=== PATIENT | female | born 1995 | race Caucasian/White ===

== ENCOUNTER → 2017-08-29 14:02 | Outpatient (CLI) | payer OTHER, SELFPAY ==
--- NOTE | 2017-08-29 | DI.US.S_ITS ---
PROCEDURE: US OB >= 14 WEEKS FETUS INDICATIONS: 20 WEEK ANATOMICAL SURVEY OUTSIDE/PRIOR DATING DATA: Last menstrual period (LMP): 04/10/2017. LMP-based estimated date of delivery (MARTHA): 01/15/2018. First dating scan (date and location): 06/07/2017. Estimated date of delivery (MARTHA) from first dating scan: 01/12/2018. TECHNIQUE: Real-time scanning was performed of the fetus, with image documentation and biometric measurements. Endovaginal scanning: Not required COMPARISON: [facility], OB <= 14 WEEKS FETUS, 06/07/2017, 9:02. FINDINGS: General: A single living intrauterine gestation is present. Presentation: Vertex. Placenta: Placental position is posterior, without previa. Amniotic fluid index: 14.0 cm, normal range is 5-24 cm. heart rate: 162 beats per minute. Maternal cervical canal: 4.6 cm long. Normal lower limit is 2.5 cm. biometrics: Biparietal diameter: 20 weeks 3 days Head circumference: 20 weeks one day Abdominal circumference: 20 weeks 2 days Femur length: 20 weeks 3 days Estimated gestational age from initial scan: 20 weeks 4 days Composite gestational age from present scan: 20 weeks 2 days, normal growth Estimated weight and percentile: 347 g at the 32nd percentile Measurement variability for biometric dating: +/- 7 days from 14 weeks to 15 weeks 6 days gestation, +/- 10 days from 16 weeks to 21 weeks 6 days gestation, +/- 2 weeks from 22 weeks to 27 weeks 6 days gestation, +/- 3 weeks for 28 weeks gestation or later. weight reference: 4500 g or EFW >90/95% is considered macrosomia or large for gestational age. EFW <10% is small for gestational age. EFW 5% or less is considered intra-uterine growth restriction. Anatomic survey: Neuro: Ventricles are non-dilated at less than 10 mm. Cisterna magna is normal at 3-11 mm. Cerebellum is normal in size and morphology. Nuchal skin fold: Normal at less than 6 mm between 14-21 weeks gestational age. Face: Nose and lips, facial profile are normal. Spine: No evidence for spina bifida. Heart: 4-chambered heart is present, with normal ventricular outflow tracts. Diaphragm: Diaphragm is intact. Stomach: Left-sided stomach is present. Kidneys: No hydronephrosis. Normal is less than 5 mm in 2nd trimester, less than 7 mm in 3rd trimester. Cord: 3-vessel cord has orthotopic insertion. Bladder: Normal in size. Extremities: All 4 extremities identified. IMPRESSION: Single, live intrauterine gestation showing composite gestational age of 20 weeks 2 days, normal growth and normal anatomy. Dictated by: Coy Ash M.D. on 08/29/2017 at 15:53 Approved by: Coy Ash M.D. on 08/29/2017 at 15:56
== END ==
PROVIDERS: PCP Family Medicine; Visit Provider Family Medicine
DX: Z36.89 Encounter for other specified antenatal screening (principal); Z3A.20 20 weeks gestation of pregnancy
CPT/HCPCS: 76811

== ENCOUNTER 2017-11-21 04:15 | Outpatient (CLI) | payer OTHER, SELFPAY ==
[2017-11-21 04:43] LABS: RBC Urine None Seen (0-5/HPF); WBC Urine None Seen (0-5/HPF)
[2017-11-21 04:44] LABS: Appearance Urine UA CLEAR; Bilirubin Urine UA NEGATIVE (NEGATIVE); Color Urine UA YELLOW; Glucose Urine UA NEGATIVE (Normal); Ketones Urine UA NEGATIVE (NEGATIVE); Leukocyte Esterase Urine UA NEGATIVE (NEGATIVE); Nitrite Urine UA NEGATIVE (Negative); Occult Blood Urine UA NEGATIVE (Negative); Protein Urine UA NEGATIVE (Negative); Specific Gravity Urine UA 1.015 (1.000-1.035); Urobilinogen Urine UA 0.2 E.U./dL (0.2)
[2017-11-21 04:51] LABS: Bacteria Urine Few (2-10); Culture Indicated Urine Cult Not Indicated; Squamous Epithelial Cell Urine 1-5 /HPF
== END 2017-11-21 05:15 | disposition home or self-care (01) ==
LOC: OB 14:07
PROVIDERS: PCP Family Medicine; Visit Provider Family Medicine
DX: Z34.83 Encounter for supervision of other normal pregnancy, third trimester (principal); Z3A.32 32 weeks gestation of pregnancy; M54.5 Low back pain
CPT/HCPCS: 59025; 81001; G0378; G0379

== ENCOUNTER 2017-11-21 05:13 | Emergency (ER) | payer OTHER, SELFPAY ==
[2017-11-21 05:28] VITALS: BP 132/75; PULSE 74; RESP 16; TEMP 36.6; O2SAT 97; BMI 30.7
[2017-11-21 05:33] VITALS: BP 121/66
[2017-11-21 06:30] VITALS: BP 97/53; PULSE 62; O2SAT 100
--- NOTE | 2017-11-21 07:10 | ED_ITS ---
HPI - Back Pain/Injury General Chief Complaint: Back Pain/Injury Stated Complaint: Back pain for several days Time Seen by Provider: 11/21/17 07:09 Source: patient Mode of arrival: ambulatory Limitations: no limitations History of Present Illness HPI Narrative: 22-year-old at 32 weeks EGA with out vaginal bleeding, loss of vaginal fluid, urinary symptoms, change in bowel habits here for evaluation of right-sided mid back pain. Patient states that it started on while she was driving. No specific trauma. Been constant since then. Has tried Tylenol. Call her OB doctor who told her to come in for evaluation. Related Data Home Medications Medication Instructions Recorded Confirmed PNV,calcium 16-ywaf-icnbn acid 11/21/17 [ Plus (calcium carb)] Previous Rx's Medication Instructions Recorded hydrocodone-acetaminophen [[place]] 1 tab PO Q6H PRN #5 tab 11/21/17 Allergies Allergy/AdvReac Type Severity Reaction Status Date / Time albuterol Allergy Difficulty Verified 11/21/17 04:56 Breathing Review of Systems Constitutional Denies fever(s) Cardiovascular Denies chest pain and Denies dyspnea Respiratory Denies dyspnea Gastrointestinal Gastrointestinal: Denies abdominal pain and Denies change in stool character Genitourinary Denies dysuria, Denies pelvic pain, Denies urinary incontinence, Denies urinary hesitancy, Denies urinary urgency and Denies vaginal discharge Musculoskeletal Reports myalgias ( Right flank pain) and Denies arthralgias Integumentary/Breasts Denies lesions and Denies rash Neurologic Denies confusion Psychiatric Denies confusion Hematologic/Lymphatic Denies easy bleeding and Denies easy bruising [facility] Medical History Healthy adult (Acute) Surgical History No pertinent past surgical history (Acute) Exam Initial Vital Signs Initial Vital Signs: Vital Signs Temperature 97.8 F 11/21/17 05:28 Pulse Rate 74 11/21/17 05:28 Respiratory Rate 16 11/21/17 05:28 Blood Pressure 132/75 11/21/17 05:28 Pulse Oximetry 97 11/21/17 05:28 HENMT Head: normal to inspection and normocephalic Resp Effort & Inspection: normal respiratory effort Auscultation: clear to auscultation bilaterally Cardio Rate: regular rate GI Inspection: non-distended Palpation: soft and No firm Back/Spine/Pelvis Back: CVA tenderness right Skin Lesions: no lesions Rashes: no rashes Extrem General: normal to inspection and capillary refill normal Psych Appearance: grossly normal and well kempt Course Orders Ordered: ED Orders 11/21/17 07:39 Urine Culture Stat Discontinued Medications Hydrocodone Bitart/Acetaminophen ([place] 5/325) 1 tab PO NOW ONE Stop: 11/21/17 07:34 Vital Signs - 8 hr 11/21/17 05:28 11/21/17 05:33 Temperature 97.8 F Pulse Rate 74 Respiratory Rate 16 Blood Pressure 132/75 Blood Pressure [Right Arm] 121/66 Pulse Oximetry 97 MDM - Back Pain/Injury MDM Narrative Medical decision making narrative: patient went to labor and delivery just prior to coming to the emergency department. She stated that they told her that she was not in labor. She is not having any urinary symptoms. Patient is urinalysis from the birthing center was reviewed. Has bacteria but no other symptoms. A culture was added and is pending at the time of discharge. Will hold on any antibiotics until the culture returns. Discussed with patient the limited medication options she has given her status. Medications such as Flexeril /Robaxin / Valium are all indeterminate . I did discuss this with her. We also discussed other options to include heat, ice, massage another [id number] remedies. Will send home with a few pain pills. She was instructed she needed to contact her OB doctor to discuss further treatment. She was given return precautions. She expressed understanding and agreement with plan. Her physical exam is consistent with musculoskeletal etiology. Doubt labor, pyelonephritis, kidney stone. Discharge Plan Departure Patient Disposition: Home Clinical Impression: Muscle spasm Instructions: How To Perform RICE (Rest, Ice, Compress, Elevate), DI for Back Spasm Activity Restrictions/Additional Instructions: I would encourage you to do easy treatment such as ice, massage, staying active. Call your OB provider today to discuss further medication treatment. Return to the emergency department for any new symptoms, worsening symptoms, fevers, urinary symptoms. Prescriptions: New hydrocodone-acetaminophen [[place]] 5-325 mg tablet 1 tab PO Q6H PRN (Reason: pain) Qty: 5 RF: 0 No Action PNV,calcium 93-ldsw-nhoya acid [ Plus (calcium carb)] 27 mg iron- 1 mg tablet RF: 0
[2017-11-21 07:30] VITALS: BP 113/65; PULSE 70; O2SAT 100
[2017-11-21] MEDS: HYDROCODONE/ACET 5/325 TABLET 1 TAB PO (07:41)
[2017-11-21 07:50] VITALS: BP 124/77; PULSE 73; RESP 18; O2SAT 100
--- NOTE | 2017-11-21 08:56 | ED.BACK ---
HPI - Back Pain/Injury General Chief Complaint: Back Pain/Injury Stated Complaint: Back pain for several days Time Seen by Provider: 11/21/17 07:09 Source: patient Limitations: no limitations Related Data Home Medications Medication Instructions Recorded Confirmed PNV,calcium 02-xziw-mupmn acid 11/21/17 [ Plus (calcium carb)] Previous Rx's Medication Instructions Recorded hydrocodone-acetaminophen [[place]] 1 tab PO Q6H PRN #5 tab 11/21/17 Allergies Allergy/AdvReac Type Severity Reaction Status Date / Time albuterol Allergy Difficulty Verified 11/21/17 04:56 Breathing Review of Systems Neurologic Denies confusion Psychiatric Denies confusion PFSH Medical History Healthy adult (Acute) Surgical History No pertinent past surgical history (Acute) Exam Initial Vital Signs Initial Vital Signs: Vital Signs Temperature 97.8 F 11/21/17 05:28 Pulse Rate 74 11/21/17 05:28 Respiratory Rate 16 11/21/17 05:28 Blood Pressure 132/75 11/21/17 05:28 Pulse Oximetry 97 11/21/17 05:28 Course Orders Ordered: Discontinued Medications Hydrocodone Bitart/Acetaminophen ([place] 5/325) 1 tab PO NOW ONE Stop: 11/21/17 07:34 Last Admin: 11/21/17 07:41 Dose: 1 tab Vital Signs - 8 hr 11/21/17 05:28 11/21/17 05:33 11/21/17 06:30 Temperature 97.8 F Pulse Rate 74 62 Respiratory Rate 16 Blood Pressure 132/75 Blood Pressure [Right Arm] 121/66 97/53 L Pulse Oximetry 97 100 11/21/17 07:30 Temperature Pulse Rate 70 Respiratory Rate Blood Pressure Blood Pressure [Right Arm] 113/65 Pulse Oximetry 100 Discharge Plan Departure Patient Disposition: Home Clinical Impression: Muscle spasm Discharge Date/Time: 11/21/17 07:55 Interventions: ED Discharge Assessment Last Done: 11/21/17 07:50 Instructions: How To Perform RICE (Rest, Ice, Compress, Elevate), DI for Back Spasm Activity Restrictions/Additional Instructions: I would encourage you to do easy treatment such as ice, massage, staying active. Call your OB provider today to discuss further medication treatment. Return to the emergency department for any new symptoms, worsening symptoms, fevers, urinary symptoms. Prescriptions: New hydrocodone-acetaminophen [[place]] 5-325 mg tablet 1 tab PO Q6H PRN (Reason: pain) Qty: 5 RF: 0 No Action PNV,calcium 96-toqf-vnmqd acid [ Plus (calcium carb)] 27 mg iron- 1 mg tablet RF: 0
--- NOTE | 2017-11-21 19:43 | ED_ITS ---
HPI - Back Pain/Injury General Chief Complaint: Back Pain/Injury Stated Complaint: Back pain for several days Time Seen by Provider: 11/21/17 07:09 Source: patient Limitations: no limitations Related Data Home Medications Medication Instructions Recorded Confirmed PNV,calcium 86-jsvq-xzgnr acid 11/21/17 [ Plus (calcium carb)] Previous Rx's Medication Instructions Recorded hydrocodone-acetaminophen [[place]] 1 tab PO Q6H PRN #5 tab 11/21/17 Allergies Allergy/AdvReac Type Severity Reaction Status Date / Time albuterol Allergy Difficulty Verified 11/21/17 04:56 Breathing Review of Systems Neurologic Denies confusion Psychiatric Denies confusion PFSH Medical History Healthy adult (Acute) Surgical History No pertinent past surgical history (Acute) Exam Initial Vital Signs Initial Vital Signs: Vital Signs Temperature 97.8 F 11/21/17 05:28 Pulse Rate 74 11/21/17 05:28 Respiratory Rate 16 11/21/17 05:28 Blood Pressure 132/75 11/21/17 05:28 Pulse Oximetry 97 11/21/17 05:28 Course Orders Ordered: Discontinued Medications Hydrocodone Bitart/Acetaminophen ([place] 5/325) 1 tab PO NOW ONE Stop: 11/21/17 07:34 Last Admin: 11/21/17 07:41 Dose: 1 tab Vital Signs - 8 hr 11/21/17 05:28 11/21/17 05:33 11/21/17 06:30 Temperature 97.8 F Pulse Rate 74 62 Respiratory Rate 16 Blood Pressure 132/75 Blood Pressure [Right Arm] 121/66 97/53 L Pulse Oximetry 97 100 11/21/17 07:30 Temperature Pulse Rate 70 Respiratory Rate Blood Pressure Blood Pressure [Right Arm] 113/65 Pulse Oximetry 100 Discharge Plan Departure Patient Disposition: Home Clinical Impression: Muscle spasm Discharge Date/Time: 11/21/17 07:55 Interventions: ED Discharge Assessment Last Done: 11/21/17 07:50 Instructions: How To Perform RICE (Rest, Ice, Compress, Elevate), DI for Back Spasm Activity Restrictions/Additional Instructions: I would encourage you to do easy treatment such as ice, massage, staying active. Call your OB provider today to discuss further medication treatment. Return to the emergency department for any new symptoms, worsening symptoms, fevers, urinary symptoms. Prescriptions: New hydrocodone-acetaminophen [[place]] 5-325 mg tablet 1 tab PO Q6H PRN (Reason: pain) Qty: 5 RF: 0 No Action PNV,calcium 78-gohc-dtiay acid [ Plus (calcium carb)] 27 mg iron- 1 mg tablet RF: 0
== END 2017-11-21 07:55 | disposition home or self-care (01) ==
PROVIDERS: Emergency Provider Emergency Medicine; PCP Family Medicine
DX: M62.830 Muscle spasm of back (principal); Z3A.32 32 weeks gestation of pregnancy
CPT/HCPCS: 59025; 81001; 87086; 99283

== ENCOUNTER → 2017-12-20 17:16 | Outpatient (REF) | payer OTHER, SELFPAY | LOC: LAB 17:16 | PROVIDERS: PCP Family Medicine; Visit Provider Family Medicine | DX: Z34.90 Encounter for supervision of normal pregnancy, unspecified, unspecified trimester (principal) | CPT/HCPCS: 87081 ==

== ENCOUNTER → 2018-01-09 09:43 | Outpatient (CLI) | payer OTHER, SELFPAY ==
--- NOTE | 2018-01-09 | DI.US.S_ITS ---
PROCEDURE: US OB LIMITED INDICATIONS: SIZE LESS THAN DATES OUTSIDE/PRIOR DATING DATA: Last menstrual period (LMP): 04/10/2017. LMP-based estimated date of delivery (MARTHA): 01/15/2018. First dating scan (date and location): 06/07/2017. Estimated date of delivery (MARTHA) from first dating scan: 01/12/2018. TECHNIQUE: Real-time scanning was performed of the fetus, with image documentation and biometric measurements. Endovaginal scanning: No [facility] >= 14 WEEKS FETUS, 08/29/2017, 14:34. FINDINGS: General: A single living intrauterine gestation is present. Presentation: Vertex. Placenta: Placental position is posterior, without previa. Amniotic fluid index: 8.4 cm, normal range is 5-24 cm. heart rate: 149 beats per minute. Maternal cervical canal: Not well-seen biometrics: Biparietal diameter: 38 weeks 2 days Head circumference: 39 weeks 1 day Abdominal circumference: 39 weeks 1 day Femur length: 39 weeks 3 days Estimated gestational age from initial scan: 39 weeks 4 days Composite gestational age from present scan: 39 weeks 0 days Estimated weight and percentile: 3693 g; 63rd percentile Measurement variability for biometric dating: +/- 7 days from 14 weeks to 15 weeks 6 days gestation, +/- 10 days from 16 weeks to 21 weeks 6 days gestation, +/- 2 weeks from 22 weeks to 27 weeks 6 days gestation, +/- 3 weeks for 28 weeks gestation or later. weight reference: 4500 g or EFW >90/95% is considered macrosomia or large for gestational age. EFW <10% is small for gestational age. EFW 5% or less is considered intra-uterine growth restriction. Other: Not applicable. IMPRESSION: 1. Single living IUP redemonstrated and interval growth is normal. Dictated by: Navarro Hinson RRA Interpreted: Lyric Jones MD on 01/09/2018 at 12:00 Approved by: Lyric Jones MD, PhD on 01/09/2018 at 16:22
== END ==
PROVIDERS: PCP Family Medicine; Visit Provider Family Medicine
DX: O36.5930 Maternal care for other known or suspected poor fetal growth, third trimester, not applicable or unspecified (principal); Z3A.39 39 weeks gestation of pregnancy
CPT/HCPCS: 76815

== ENCOUNTER 2018-01-11 06:04 | Inpatient (IN) | payer OTHER, SELFPAY ==
[2018-01-11 08:09] VITALS: BP 122/77
[2018-01-11 08:15] LABS: Add Manual Diff / Slide Review NO; Basophils Percent Auto 0.3 % (0-2); Eosinophils Percent Auto 0.3 % (2-4); Hematocrit 40.8 % (36-46); Hemoglobin 13.2 g/dL (12.0-16.0); Lymphocytes Percent Auto 12.1 % (25-40); Mean Corpuscular HGB Conc 32.5 % (30-36); Mean Corpuscular Hemoglobin 28.4 PG (26-34); Mean Corpuscular Volume 87.6 fL (80-100); Monocytes Percent Auto 5.7 % (3-14); Neutrophils Absolute Auto 11700 /uL (3000-5900); Neutrophils Percent Auto 81.6 % (50-75); Platelet Count 279 X10^3/uL (150-400); Red Blood Cell Count 4.65 X10^6/uL (4.0-5.2); White Blood Cell Count 14.3 X10^3/uL (4.5-11.0)
[2018-01-11] MEDS: LACTATED RINGERS 1,000 ML 100 ML IV ×2 (10:26→11:23)
--- NOTE | 2018-01-11 13:06 | PM.OBPN.1 ---
Subjective - OB Patient comments: no complaints and pain well controlled Exam Vital Signs (past 8 hours): - 01/11/18 08:09 Blood Pressure 122/77 Objective Labs Result Diagrams: 01/11/18 08:01 Labs: Laboratory Results - last 24 hr 01/11/18 01/11/18 08:01 08:01 WBC 14.3 H RBC 4.65 Hgb 13.2 Hct 40.8 MCV 87.6 MCH 28.4 MCHC 32.5 RDW 14.0 Plt Count 279 Neut % (Auto) 81.6 H Lymph % (Auto) 12.1 L [place] % (Auto) 5.7 Eos % (Auto) 0.3 L Baso % (Auto) 0.3 Neut # (Auto) 29351 H Blood Type B Positive Antibody Screen Negative Assessment & Plan Time Spent With Patient Total time spent is greater than 50% in coordination of care (as documented) at patient's floor/unit and/or counseling patient:
--- NOTE | 2018-01-11 13:08 | PM.OBPNLAB ---
Date/Time Date Patient Seen: 01/11/18 Time Patient Seen: 13:08 Pain Control Pain control: tolerating well and epidural Pelvic Exam Dilation (cm): 5 Effacement (%): 100 station: -1 Amniotic membrane status: Ruptured Comments: ruptured at 1215pm today suspected Contractions Date/Time contractions began: 01/11/18 at 130am Contractions on admission: regular Monitor mode: External Contraction frequency (min): 4 Contraction pattern: Regular Contraction intensity: Strong/Firm Status status: Category l Heart Rate Baseline: 120 Monitor Accelerations: Present Monitor Decelerations: Early Monitor Variability: Moderate Assessment and Plan Assessment: active labor Plan: continuous present management Comments: gbs negative rh positive comfortable with epidural pitocin if ctx space out
[2018-01-11] MEDS: OXYTOCIN PREMIX 30 UNIT/500 ML PLAST..BAG IV (13:16)
[2018-01-11] MEDS: IBUPROFEN 600 MG TABLET PO (17:14)
[2018-01-11] MEDS: LANOLIN OINT 7 GM 1 APPLIC TOP (17:14)
[2018-01-11] MEDS: DERMOPLAST SPRAY 20% 60 ML 1 SPRAY TOP (17:16)
--- NOTE | 2018-01-11 18:02 | P.PCNOB_ITS ---
Delivery date: 01/11/18 Intrapartal events: None Induction method: none Delivery monitor: external FHT Route of delivery: Laceration description: Vaginal - 2nd Degree Delivery repair: chromic Estimated blood loss (mL): 200 Anesthesia type: Epidural Complications: none Narrative: Stage I: 12 hr and 25 min Patient started having painful contractions at 1:45 a.m. and was felt she was in active labor. She had painful contractions and presented to Labor and delivery and was admitted at 7:00 a.m.. She was monitored for about a 0.5 hr was 3 cm 90% effaced 0 station on presentation. Intact bag of water. She is admitted to the hospital continued to labor and was making progress. Was 4 cm 90% effaced and 0 station and then was referred requesting help with anesthesia. She was given epidural at 10:40 a.m. which was very effective epidural. She was comfortable throughout the remainder of the labor. External tocometer was used throughout this stage in which her contractions spaced out to every 3-4 minutes 0 3 milliunits of Pitocin was started after the epidural at approximately 13 15. She then had regular contractions every 2-4 minutes. Category 1 tracing with external heart monitor throughout stage I. Baseline heart rate in 120s with accelerations with moderate variability and occasional variable deceleration. She had slight leakage of fluid at 12:15 a.m. which was 2 hr and 52 min prior to delivery. It was clear fluid. She was noted to be complete at 2:10 p.m.. And labor down until 1426 when she began pushing. Stage II lasted 57 min but she had 41 min of pushing. Patient was placed in stirrups due to epidural and continued to have excellent anesthesia. We continue to use external tocometer and heart monitor and she continued to have a category 1 tracing with a baseline heart rate in the 120s to 130s with moderate variability and accelerations with no decelerations to the 1 teens with pushing. Pitocin was continued at 3 milliunits. Patient allowed the baby to sit on the perineum effectively stretching. Baby was delivered in right Calderon put anterior position. She stop pushing briefly there is no evidence of a nuchal cord and anterior shoulder and posterior shoulder shoulder were delivered without difficulty and baby was placed on mom's chest. Baby's Apgars were 8 at 1 min and 9 at 5 min and shortly after baby began breast-feeding. Stage III lasted 5 min Normal spontaneous vaginal delivery of a very large placenta without significant calcifications with a near central cord insertion with a three- vessel cord. Patient had a 2nd degree left lateral vaginal laceration and a left labial laceration both of which were repaired using 17471 chromic. Cervix was visualized there were no cervical tears no other vaginal tears and bleeding had decreased with good uterine tone. Pitocin was run in at the time of the delivery of the placenta. At the time of dictation both mom and baby are in stable condition. Plan for aftercare: routine
--- NOTE | 2018-01-11 18:10 | PM.HP.1 ---
History of Present Illness Date Patient Seen: 01/11/18 Time Patient Seen: 09:10 Chief complaint: LABOR & DELIVERY Narrative: HPI: 22-year-old female who complains of onset of uterine contractions approximately 1:30 a.m.. She was unable to go to sleep. The intensity gradually increase through the night she presented to Labor and delivery on the day of delivery at approximately 6:30 a.m.. She was found to be 3 cm, 90% effaced and 0 station. Category 1 tracing. She was admitted to the hospital. She denied any leaking fluid or any bloody show. She did lose some of her mucus plug. She denies any abdominal pain or swelling or headaches. Baby has been active. Past OB history: This is her 1st care was begun early on at approximately 10 weeks gestation. She had approximately 12 visits. Her blood pressures were good 96-120 2/60 2-70. She gained 35 lb. Serology B positive, antibody screen negative, rubella immune, syphilis, hepatitis-B, hepatitis-C, HIV all negative. No anemia. Chlamydia and gonorrhea negative. Pap normal. Quad screen negative. 1 hr glucose tolerance test 106. Received Tdap and flu shot Past surgical history unremarkable Past medical history unremarkable Family history: Half sister had emergency due to utero placental insufficiency No congenital defects Patient History Medical History Healthy adult (Acute) Surgical History No pertinent past surgical history (Acute) Family & Social History Tobacco & Substance use: Smoking Status Never smoker Meds Home Medications Medication Instructions Recorded Confirmed Type PNV,calcium 85-dytg-seofb acid 1 tab PO DAILY 11/21/17 01/11/18 History [PrePlus] Allergies Allergy/AdvReac Type Severity Reaction Status Date / Time albuterol Allergy Difficulty Verified 11/21/17 04:56 Breathing Review of Systems Review of Systems All systems reviewed & are unremarkable except as noted in HPI and below Exam Vital Signs (past 8 hours): Afebrile vital signs are stable HEENT is unremarkable Neck is supple Chest clear to auscultation Cor regular rate and rhythm without murmur Abdomen: Gravid, vertex, estimated weight 7 lb Extremities no edema, DTRs are intact Cervix 5 to 6 cm, 100% effaced heart tracing baseline 120s with accelerations and moderate variability and no decelerations. Uterine contractions regular every 2-4 minutes Objective Labs Result Diagrams: 01/11/18 08:01 Labs: Laboratory Results - last 24 hr 01/11/18 01/11/18 08:01 08:01 WBC 14.3 H RBC 4.65 Hgb 13.2 Hct 40.8 MCV 87.6 MCH 28.4 MCHC 32.5 RDW 14.0 Plt Count 279 Neut % (Auto) 81.6 H Lymph % (Auto) 12.1 L Richardson % (Auto) 5.7 Eos % (Auto) 0.3 L Baso % (Auto) 0.3 Neut # (Auto) 12865 H Blood Type B Positive Antibody Screen Negative Assessment & Plan Plan: Assessment/Plan Narrative: 22-year-old at 39 and 6 7 weeks estimated gestational age in active labor Managing contractions well Continue to monitor epidural if requests help with anesthesia Continue with external tocometer heart monitor GBS negative Ob positive antibody screen negative, rubella immune, serology negative glucose tolerance test normal at 106 is status post Tdap and flu shot
[2018-01-12 00:19] VITALS: TEMP 37.1
[2018-01-12] MEDS: IBUPROFEN 600 MG TABLET PO ×5 (00:19→23:49)
[2018-01-12 00:50] VITALS: TEMP 37.1
[2018-01-12 06:17] VITALS: TEMP 37.1
[2018-01-12 07:06] LABS: Hematocrit 37.5 % (36-46); Hemoglobin 12.2 g/dL (12.0-16.0)
[2018-01-12] MEDS: DOCUSATE 250 MG CAPSULE PO (08:58)
[2018-01-12] MEDS: PRENATAL VIT,CALC/IRON/FOLIC 1 TABLET 1 TAB PO (08:58)
--- NOTE | 2018-01-12 12:49 | PM.PN.1 ---
Subjective Date Patient Seen: 01/12/18 Time Patient Seen: 12:49 Interval history: Patient overall feeling well. Having some bottom pain. Using ibuprofen. No bleeding. No other significant change. Breast-feeding seems to be going well. Mild nipple pain but no other change. Exam Vital Signs (past 8 hours): - 01/12/18 06:17 Temperature 98.8 F Narrative Exam Narrative: Alert female in smiling interactive in no acute distress. Lungs are clear. Heart regular rate rhythm. Uterus is firm at umbilicus Objective Labs Result Diagrams: 01/12/18 06:30 Labs: Laboratory Results - last 24 hr 01/12/18 06:30 Hgb 12.2 Hct 37.5 Assessment & Plan Plan: Assessment/Plan Narrative: Status post day 1 doing overall well. We discussed pain control. Options available. She understands. Continue work with breast-feeding follow-up a.m. probable home tomorrow.
[2018-01-12] MEDS: ACETAMINOPHEN 325 MG TABLET 650 MG PO ×2 (13:06→19:03)
[2018-01-13] MEDS: ACETAMINOPHEN 325 MG TABLET 650 MG PO ×2 (01:25→07:59)
[2018-01-13] MEDS: IBUPROFEN 600 MG TABLET PO ×2 (05:48→11:02)
[2018-01-13] MEDS: PRENATAL VIT,CALC/IRON/FOLIC 1 TABLET 1 TAB PO (07:59)
--- NOTE | 2018-01-13 08:24 | PM.OBDS.1 ---
Discharge Providers Date of admission: 01/11/18 06:04 Primary care physician: Damari Richardson MD Consults: 01/11/18 15:48 Consult to Registered Nurse Renal Routine Comment: Discharge provider: Damari Richardson MD Discharge Date: 01/13/18 Summary Date Patient Seen: 01/13/18 Time Patient Seen: 08:27 Peripartum Data Delivery Method: Natural Vaginal Laceration description: Vaginal - 2nd Degree complications: none Status at Discharge Cognitive/behavioral status at discharge: normal Lungs clear to auscultation Cor regular rate and rhythm without murmur Abdomen: Uterus is nontender and below the umbilicus Extremities: No edema, DTRs are intact Functional status at discharge: independent ambulation Overall status at discharge: patient is progressing back to baseline Time Spent with Patient Total time spent providing and/or coordinating discharge services: Greater than 30 minutes Objective Labs Result Diagrams: 01/12/18 06:30 Discharge Plan Discharge Plan Patient Disposition: Home Discharge Med Rec/Prescriptions Prescriptions: New ibuprofen 600 mg Tablet 600 mg PO Q6HR PRN (Reason: Pain, Mild (1-3)) Qty: 60 RF: 0 docusate sodium 250 mg Capsule 250 mg PO DAILY Qty: 60 RF: 0 Continue PNV,calcium 89-fqwr-zvmbw acid [PrePlus] 27 mg iron- 1 mg tablet 1 tab PO DAILY RF: 0 Follow up/Referrals: Damari Richardson MD [Primary Care Provider] - 01/26/18 12:00 am Provider Discharge Instructions Diet: Diet as Tolerated Activity: no heavy lifting pelvic rest Discharge Data Primary Care Provider: Damari Richardson Attending Provider: Damari Richardson Admit Date/Time: 01/11/18 06:04
--- NOTE | 2018-01-13 08:29 | P.DS_ITS ---
Discharge Providers Date of admission: 01/11/18 06:04 Primary care physician: Damari Richardson MD Consults: 01/11/18 15:48 Consult to Thai Masseur Routine Comment: Discharge provider: Damari Richardson MD Discharge Date: 01/13/18 Summary Date Patient Seen: 01/13/18 Time Patient Seen: 08:27 Peripartum Data Delivery Method: Natural Vaginal Laceration description: Vaginal - 2nd Degree complications: none Status at Discharge Cognitive/behavioral status at discharge: normal Lungs clear to auscultation Cor regular rate and rhythm without murmur Abdomen: Uterus is nontender and below the umbilicus Extremities: No edema, DTRs are intact Functional status at discharge: independent ambulation Overall status at discharge: patient is progressing back to baseline Time Spent with Patient Total time spent providing and/or coordinating discharge services: Greater than 30 minutes Objective Labs Result Diagrams: 01/12/18 06:30 Discharge Plan Discharge Plan Patient Disposition: Home Discharge Med Rec/Prescriptions Prescriptions: New ibuprofen 600 mg Tablet 600 mg PO Q6HR PRN (Reason: Pain, Mild (1-3)) Qty: 60 RF: 0 docusate sodium 250 mg Capsule 250 mg PO DAILY Qty: 60 RF: 0 Continue PNV,calcium 01-tprk-rvevr acid [PrePlus] 27 mg iron- 1 mg tablet 1 tab PO DAILY RF: 0 Follow up/Referrals: Damari Richardson MD [Primary Care Provider] - 01/26/18 12:00 am Provider Discharge Instructions Diet: Diet as Tolerated Activity: no heavy lifting pelvic rest Discharge Data Primary Care Provider: Damari Richardson Attending Provider: Damari Richardson Admit Date/Time: 01/11/18 06:04
[2018-01-13 08:45] VITALS: BP 122/77; TEMP 37.1
== END 2018-01-13 12:52 | disposition home or self-care (01) | DRG 807 ==
PROVIDERS: Admitting Provider Family Medicine; PCP Family Medicine; Visit Provider Family Medicine
DX: O70.1 Second degree perineal laceration during delivery (principal); Z37.0 Single live birth; Z3A.39 39 weeks gestation of pregnancy
CPT/HCPCS: 01967; 36415; 59050; 85014; 85018; 85025; 86850; 86900; 86901; G0379; J2590; J3010

== ENCOUNTER 2018-06-06 11:15 | Outpatient (RCR) | payer OTHER, SELFPAY ==
--- NOTE | 2018-04-11 15:05 | PT.OIE ---
Current Diagnoses Separation of muscle (nontraumatic), other site (04/11/18) Past Medical History (Last Updated 11/21/17 @ 07:36 by Ollie Ibarra DO) Healthy adult (Acute) Past Surgical History (Last Updated 11/21/17 @ 07:36 by Ollie Ibarra DO) No pertinent past surgical history (Acute) Provider Visit Care Team Role Provider Type Damari Richardson MD Attending Provider Physician Primary Care Provider Specialty: Family Practice Address: [address] [place] [address], [facility] Email: Physical Therapy Initial Evaluation PT-OP-A Visit Information Start: 04/11/18 14:14 Freq: Status: Active Protocol: Document 04/11/18 14:15 [facility] (Rec: 04/11/18 14:33 [facility] [id number]) Out-Patient Physical Therapy Visit Information Visit Information Visit Type Initial Evaluation Visit Note 22 year old female 3 months s/ p vaginal delivery with pelvic floor weakness and diastasis Visit Start Time 13:00 Visit Stop Time 13:45 Total Visit Minutes 45 Visit Number 1 Evaluation Information Evaluation Date 04/11/18 PT-OP-B Current Condition Start: 04/11/18 14:14 Freq: Status: Active Protocol: Document 04/11/18 14:15 [facility] (Rec: 04/11/18 14:33 [facility] [id number]) Current Condition History of Current Condition Onset Date 01/11/18 Current Complaints weakness of the core with diastasis, urinary incontinence, LBP History of Current Condition 22 Year old female 3 months post following a vaginal delivery presents with diastasis rectus, pelvic floor weakness, and low back pain. Nataliia reports she feels as if she can not activate her core. She reports urinary leakage 2 xms per day with urgency and R >L LBP Treatment Goals Patient/Caregiver Goals Improve stregth of the core, decrease leakage, and reduce LBP PT-OP-J Posture/Palpation/Skin Start: 04/11/18 14:14 Freq: Status: Active Protocol: Document 04/11/18 14:15 [facility] (Rec: 04/11/18 14:33 [facility] [id number]) Posture Evaluation Position Standing L-Spine Posture Increased Lordosis Palpation Assessment Location Three Palpation Location Right ASIS tenderness to palpation Palpation Findings Tenderness Two Palpation Location Right side lumbar paraspinals and R SI joint Palpation Findings Muscle Guarding Tenderness One Palpation Location rectus abdominus linea albo Palpation Details diastasis evaluation, at rest there is a 3 finger width seperation just above the umbilicus, with head raise the transverse abdominus contracts a little and this changes to a 2 finger width seperation, distal to tthe umbilicus there is a 2 finger width seperation PT-OP-K Range of Motion Start: 04/11/18 14:35 Freq: Status: Active Protocol: Document 04/11/18 14:35 [facility] (Rec: 04/11/18 14:37 [facility] [id number]) Lumbar Spine Range of Motion Lumbar Spine Active Flexion 60 ROM Limitations Soft Tissue Tightness Comments The patient stands in a increased lordosis, with forward flexion she stays in a arched position, difficulty flexing at the lumbar spine PT-OP-L Special Tests Start: 04/11/18 14:14 Freq: Status: Active Protocol: Document 04/11/18 14:15 [facility] (Rec: 04/11/18 14:33 [facility] [id number]) Special Tests Lumbar Spine Special Tests Patricio Test Results + on the right Other Special Tests Special Tests +ASLR test on the left + standing march test B for SI instability PT-OP-M Strength Start: 04/11/18 14:14 Freq: Status: Active Protocol: Document 04/11/18 14:15 [facility] (Rec: 04/11/18 14:33 [facility] [id number]) Trunk Strength Trunk Manual Muscle Testing Core Stabilization stretch weakness of the transverse abdominal musculature, diastasis above and below the umbilicus PT-OP-Q Treatments Start: 04/11/18 14:14 Freq: Status: Active Protocol: Document 04/11/18 14:37 [facility] (Rec: 04/11/18 15:04 [facility] [id number]) Therapeutic Exercises Supine Exercises 2 Supine Exercise Name TA facilitation Side bilateral Reps/Minutes x 5 1 Supine Exercise Name isometric ball squeeze Side bilateral Reps/Minutes 10 reps x 5 second hold time Other Exercises 2 Other Exercise Name quadraped cat cow Reps/Minutes 10 reps 1 Other Exercise Name quadraped TA facilitation Reps/Minutes hold 5 seconds 10 reps work up to 10 second hold time Manual Therapy Treatment Manual Techniques 1 Type MET right posterior rotation Body Position Hooklying Reps/Duration x 5 reps Comments followed by manaul resistance to isometric adduction Self-Care/Home Management Treatment Education Patient Education Body Mechanics Home Exercise Program Joint Protection Caregiver Education education on body mechanics for lifting car seat, avoiding single leg stance activities, rolling in bed wtih TA faciliatation, HEP PT-OP-T Assessment and Plan Start: 04/11/18 14:14 Freq: Status: Active Protocol: Document 04/11/18 14:37 [facility] (Rec: 04/11/18 15:04 [facility] [id number]) Physical Therapy Assessment Rehab Potential Rehabilitation Potential Excellent Evaluation Complexity Number of Personal Factors/Comorbidities 0 Number of Body Systems Impaired 1-2 Clinical Presentation at Evaluation Stable Impairments Impairments Activity Tolerance Pain Posture ROM Soft Tissue Mobility Strength Other Impairments urinary leakage Goals Four Impairment pelvic floor weakness with urinary incontinence Half-Way Goal (LTG) Improve pelvic floor strength to reduce urinary leakage from 2 xms per day to no longer leaking throught the day LTG Duration 8 weeks Three Impairment SI instability with right greater than left iliopsoas tightness, Half-Way Goal (LTG) correct SI alignment of the left leg longer in supine with manual therapy techniques, stretching of the iliopsoas, and body mechanics training LTG Duration 8 weeks Two Impairment Shortened lumbar paraspinal muscles with increased lordosis in standing, LB Short Term Goal (STG) Nataliia is educated in stretching exercises for the lumbar paraspinals to help reduce tightness, she is given postural education to decrease her lordosis in standing, and she has reduced complaints of LBP STG Duration 4 weeks One Impairment abdominal wall stretch weakness with diastasis Short Term Goal (STG) Nataliia is educated on activities that would place strain on the abdominal wall, taught bracing techniques for transitional movements, and to avoid sit up type movements STG Duration 3 weeks Half-Way Goal (LTG) Improve stabilization of the transverse abdominal wall to support the core and reduce the diastasis, she is able to perform a SLR without the opposite SI joint unlocking (- ASLR test) LTG Duration 8 weeks Assessment Summary Assessment Nataliia is a 22 year old female 3 months who presents to physical therapy with complaints of core weakness, urinary leakage, and LBP on the right side. With evaluation of the Rectus abdominus linea alba she has a three finger width seperation just above the umbilicus at rest. With active head raise her transverse abdominal muscles kick in some and this reduced to a 2 finger width seperation, distal to the umbilicus she has a 2 finger width seperation at rest and with active head lift. She has a increased lordosis in standing with increased tone of the lumbar paraspinals. Lumbar flexion is limited as her back wants to stay in a extended position. She has positive tests for SI instability and has tenderness over the right ASIS and right paraspinals. There is a + patricio test on the right for iliopsoas tightness and she reports c/o R SI pain with passive hip IR/ ER. There is hamstring tightness bilaterally. Left leg is longer in supine and this corrected today with manual MET. Nataliia was started today with body mechanis education, education on avoiding sitting straight up in bed to protect the abdominal wall, and we began a gentle inner core stabilization program. I also began lumbar flexion stretching due to the tightness in the paraspinals. Pelvic floor strength was not evaluated today but due to the urinary leakage Nataliia would benefit from the biofeedback and pelvic floor neuro-reducation as well. She is a good candidate for PT . Physical Therapy Plan Frequency and Duration Frequency of Treatment 1x/Week Duration of Treatment 8 weeks Plan of Care Start Date 04/11/18 Plan of Care End Date 06/06/18 Therapeutic Interventions Therapeutic Interventions Home Exercise Program Joint Mobilizations Manual Therapy Neuromuscular Re-education Patient/Caregiver Education Self-Care/Home Management Soft Tissue Mobilization Therapeutic Exercises Modalities Biofeedback Next Visit Focus/Plan Next Note Type Treatment Note Next Visit Plan review home exercise program, review posture in standing, begin TA stabilization progression, start EMG biofeedback for pelvic floor neuro re-education
--- NOTE | 2018-04-11 15:05 | PT.OPPOC ---
Current Diagnoses Separation of muscle (nontraumatic), other site (04/11/18) Provider Visit Care Team Role Provider Type Damari Richardson MD Attending Provider Physician Primary Care Provider Specialty: Family Practice Address: [address] [place] [address], [id number] Email: Plan Of Care PT-OP-T Assessment and Plan Start: 04/11/18 14:14 Freq: Status: Active Protocol: Document 04/11/18 14:37 [facility] (Rec: 04/11/18 15:04 [facility] [id number]) Physical Therapy Assessment Rehab Potential Rehabilitation Potential Excellent Evaluation Complexity Number of Personal Factors/Comorbidities 0 Number of Body Systems Impaired 1-2 Clinical Presentation at Evaluation Stable Impairments Impairments Activity Tolerance Pain Posture ROM Soft Tissue Mobility Strength Other Impairments urinary leakage Goals Four Impairment pelvic floor weakness with urinary incontinence Assistant Professor Nurse Education Goal (LTG) Improve pelvic floor strength to reduce urinary leakage from 2 xms per day to no longer leaking throught the day LTG Duration 8 weeks Three Impairment SI instability with right greater than left iliopsoas tightness, Assistant Professor Nurse Education Goal (LTG) correct SI alignment of the left leg longer in supine with manual therapy techniques, stretching of the iliopsoas, and body mechanics training LTG Duration 8 weeks Two Impairment Shortened lumbar paraspinal muscles with increased lordosis in standing, LB Short Term Goal (STG) Nataliia is educated in stretching exercises for the lumbar paraspinals to help reduce tightness, she is given postural education to decrease her lordosis in standing, and she has reduced complaints of LBP STG Duration 4 weeks One Impairment abdominal wall stretch weakness with diastasis Short Term Goal (STG) Nataliia is educated on activities that would place strain on the abdominal wall, taught bracing techniques for transitional movements, and to avoid sit up type movements STG Duration 3 weeks Assistant Professor Nurse Education Goal (LTG) Improve stabilization of the transverse abdominal wall to support the core and reduce the diastasis, she is able to perform a SLR without the opposite SI joint unlocking (- ASLR test) LTG Duration 8 weeks Assessment Summary Assessment Nataliia is a 22 year old female 3 months who presents to physical therapy with complaints of core weakness, urinary leakage, and LBP on the right side. With evaluation of the Rectus abdominus linea alba she has a three finger width seperation just above the umbilicus at rest. With active head raise her transverse abdominal muscles kick in some and this reduced to a 2 finger width seperation, distal to the umbilicus she has a 2 finger width seperation at rest and with active head lift. She has a increased lordosis in standing with increased tone of the lumbar paraspinals. Lumbar flexion is limited as her back wants to stay in a extended position. She has positive tests for SI instability and has tenderness over the right ASIS and right paraspinals. There is a + rebeca test on the right for iliopsoas tightness and she reports c/o R SI pain with passive hip IR/ ER. There is hamstring tightness bilaterally. Left leg is longer in supine and this corrected today with manual MET. Nataliia was started today with body mechanics education, education on avoiding sitting straight up in bed to protect the abdominal wall, and we began a gentle inner core stabilization program. I also began lumbar flexion stretching due to the tightness in the paraspinals. Pelvic floor strength was not evaluated today but due to the urinary leakage Nataliia would benefit from the biofeedback and pelvic floor neuro-reducation as well. She is a good candidate for PT . Physical Therapy Plan Frequency and Duration Frequency of Treatment 1x/Week Duration of Treatment 8 weeks Plan of Care Start Date 04/11/18 Plan of Care End Date 06/06/18 Therapeutic Interventions Therapeutic Interventions Home Exercise Program Joint Mobilizations Manual Therapy Neuromuscular Re-education Patient/Caregiver Education Self-Care/Home Management Soft Tissue Mobilization Therapeutic Exercises Modalities Biofeedback Next Visit Focus/Plan Next Note Type Treatment Note Next Visit Plan review home exercise program, review posture in standing, begin TA stabilization progression, start EMG biofeedback for pelvic floor neuro re-education Plan of Care Dates Plan of Care Start Date 04/11/18 Plan of Care End Date 06/06/18 Please Sign and Return: I have reviewed this Plan of Care and certify that the skilled therapy services above are required to meet the patient?s needs. Physician Signature Date Printed Name and Credentials Clinical Instructor Signature Printed Name and Credentials
--- NOTE | 2018-04-20 14:56 | PT.OTN ---
Current Diagnoses Separation of muscle (nontraumatic), other site (04/18/18) Physical Therapy Treatment Note PT-OP-A Visit Information Start: 04/11/18 14:14 Freq: Status: Active Protocol: Document 04/18/18 11:15 [facility] (Rec: 04/20/18 14:56 [facility] [id number]) Out-Patient Physical Therapy Visit Information Visit Information Visit Type Treatment Note Visit Start Time 11:15 Visit Stop Time 12:00 Total Visit Minutes 45 Visit Number 2 Evaluation Information Evaluation Date 04/11/18 PT-OP-B Current Condition Start: 04/11/18 14:14 Freq: Status: Active Protocol: Document 04/11/18 14:15 [facility] (Rec: 04/11/18 14:33 [facility] [id number]) Current Condition History of Current Condition Onset Date 01/11/18 Current Complaints weakness of the core with diastasis, urinary incontinence, LBP History of Current Condition 22 Year old female 3 months post following a vaginal delivery presents with diastasis rectus, pelvic floor weakness, and low back pain. Nataliia reports she feels as if she can not activate her core. She reports urinary leakage 2 xms per day with urgency and R >L LBP Treatment Goals Patient/Caregiver Goals Improve stregth of the core, decrease leakage, and reduce LBP PT-OP-C Subjective Start: 04/11/18 14:14 Freq: Status: Active Protocol: Document 04/18/18 11:15 [facility] (Rec: 04/20/18 14:56 [facility] [id number]) OP-PT Subjective Patient Comments Patient Comments Nataliia reports she has been working on the exercises PT-OP-J Posture/Palpation/Skin Start: 04/11/18 14:14 Freq: Status: Active Protocol: Document 04/11/18 14:15 [facility] (Rec: 04/11/18 14:33 [facility] [id number]) Posture Evaluation Position Standing L-Spine Posture Increased Lordosis Palpation Assessment Location Three Palpation Location Right ASIS tenderness to palpation Palpation Findings Tenderness Two Palpation Location Right side lumbar paraspinals and R SI joint Palpation Findings Muscle Guarding Tenderness One Palpation Location rectus abdominus linea albo Palpation Details diastasis evaluation, at rest there is a 3 finger width seperation just above the umbilicus, with head raise the transverse abdominus contracts a little and this changes to a 2 finger width seperation, distal to tthe umbilicus there is a 2 finger width seperation PT-OP-K Range of Motion Start: 04/11/18 14:35 Freq: Status: Active Protocol: Document 04/11/18 14:35 [facility] (Rec: 04/11/18 14:37 [facility] [id number]) Lumbar Spine Range of Motion Lumbar Spine Active Flexion 60 ROM Limitations Soft Tissue Tightness Comments The patient stands in a increased lordosis, with forward flexion she stays in a arched position, difficulty flexing at the lumbar spine PT-OP-L Special Tests Start: 04/11/18 14:14 Freq: Status: Active Protocol: Document 04/11/18 14:15 [facility] (Rec: 04/11/18 14:33 [facility] [id number]) Special Tests Lumbar Spine Special Tests Patricio Test Results + on the right Other Special Tests Special Tests +ASLR test on the left + standing march test B for SI instability PT-OP-M Strength Start: 04/11/18 14:14 Freq: Status: Active Protocol: Document 04/11/18 14:15 [facility] (Rec: 04/11/18 14:33 [facility] [id number]) Trunk Strength Trunk Manual Muscle Testing Core Stabilization stretch weakness of the transverse abdominal musculature, diastasis above and below the umbilicus PT-OP-Q Treatments Start: 04/11/18 14:14 Freq: Status: Active Protocol: Document 04/18/18 11:15 [facility] (Rec: 04/20/18 14:56 [facility] [id number]) Therapeutic Exercises Supine Exercises 4 Supine Exercise Name pelvic floor long holds Reps/Minutes 10 reps x 10 second holds 3 Supine Exercise Name TA with marching and heel slides 2 Supine Exercise Name TA facilitation Side bilateral Reps/Minutes x 5 1 Supine Exercise Name isometric ball squeeze Side bilateral Reps/Minutes 10 reps x 5 second hold time Other Exercises 4 Other Exercise Name prayer stretch 3 Other Exercise Name sidebends in quadraped 2 Other Exercise Name quadraped cat cow Reps/Minutes 10 reps 1 Other Exercise Name quadraped TA facilitation Reps/Minutes hold 5 seconds 10 reps work up to 10 second hold time Neuro Re-Education Treatment Other Activities 1 Details relaxed awareness of the pelvic floor on EMG biofeedback Comments resting tone 4.7 initially PT-OP-T Assessment and Plan Start: 04/11/18 14:14 Freq: Status: Active Protocol: Document 04/18/18 11:15 [facility] (Rec: 04/20/18 14:56 [facility] [id number]) Physical Therapy Assessment Assessment Summary Assessment average rest on EMG biofeedback was 4.7 uv worked on relaxed awareness of the pelvic floor. Nataliia was able to improve relaxation with biofeedback and was able to tolerate long holds of the pelvic floor. Physical Therapy Plan Frequency and Duration Frequency of Treatment 1x/Week Duration of Treatment 8 weeks Plan of Care Start Date 04/11/18 Plan of Care End Date 06/06/18 Therapeutic Interventions Therapeutic Interventions Home Exercise Program Joint Mobilizations Manual Therapy Neuromuscular Re-education Patient/Caregiver Education Self-Care/Home Management Soft Tissue Mobilization Therapeutic Exercises Modalities Biofeedback Next Visit Focus/Plan Next Note Type Treatment Note Next Visit Plan continue to progress ther ex as tolerated, reassess the diastasis next visit, recheck SI alignment
--- NOTE | 2018-04-25 17:54 | PT.OTN ---
Current Diagnoses Separation of muscle (nontraumatic), other site (04/25/18) Physical Therapy Treatment Note PT-OP-A Visit Information Start: 04/11/18 14:14 Freq: Status: Active Protocol: Document 04/25/18 17:48 [facility] (Rec: 04/25/18 17:54 [facility] [email or web address]) Out-Patient Physical Therapy Visit Information Visit Information Visit Type Treatment Note Visit Start Time 11:15 Visit Stop Time 12:00 Total Visit Minutes 45 Visit Number 3 PT-OP-B Current Condition Start: 04/11/18 14:14 Freq: Status: Active Protocol: Document 04/11/18 14:15 [facility] (Rec: 04/11/18 14:33 [facility] [id number]) Current Condition History of Current Condition Onset Date 01/11/18 Current Complaints weakness of the core with diastasis, urinary incontinence, LBP History of Current Condition 22 Year old female 3 months post following a vaginal delivery presents with diastasis rectus, pelvic floor weakness, and low back pain. Nataliia reports she feels as if she can not activate her core. She reports urinary leakage 2 xms per day with urgency and R >L LBP Treatment Goals Patient/Caregiver Goals Improve stregth of the core, decrease leakage, and reduce LBP PT-OP-C Subjective Start: 04/11/18 14:14 Freq: Status: Active Protocol: Document 04/25/18 17:48 [facility] (Rec: 04/25/18 17:54 [facility] [id number]) OP-PT Subjective Patient Comments Patient Comments Pt reports she tried running and is doing a return to running program. She had some low back and knee pain with this. Also c/o tailbone pain PT-OP-J Posture/Palpation/Skin Start: 04/11/18 14:14 Freq: Status: Active Protocol: Document 04/11/18 14:15 [facility] (Rec: 04/11/18 14:33 [facility] [id number]) Posture Evaluation Position Standing L-Spine Posture Increased Lordosis Palpation Assessment Location Three Palpation Location Right ASIS tenderness to palpation Palpation Findings Tenderness Two Palpation Location Right side lumbar paraspinals and R SI joint Palpation Findings Muscle Guarding Tenderness One Palpation Location rectus abdominus linea albo Palpation Details diastasis evaluation, at rest there is a 3 finger width seperation just above the umbilicus, with head raise the transverse abdominus contracts a little and this changes to a 2 finger width seperation, distal to tthe umbilicus there is a 2 finger width seperation PT-OP-K Range of Motion Start: 04/11/18 14:35 Freq: Status: Active Protocol: Document 04/11/18 14:35 [facility] (Rec: 04/11/18 14:37 [facility] [id number]) Lumbar Spine Range of Motion Lumbar Spine Active Flexion 60 ROM Limitations Soft Tissue Tightness Comments The patient stands in a increased lordosis, with forward flexion she stays in a arched position, difficulty flexing at the lumbar spine PT-OP-L Special Tests Start: 04/11/18 14:14 Freq: Status: Active Protocol: Document 04/11/18 14:15 [facility] (Rec: 04/11/18 14:33 [facility] [id number]) Special Tests Lumbar Spine Special Tests Patricio Test Results + on the right Other Special Tests Special Tests +ASLR test on the left + standing march test B for SI instability PT-OP-M Strength Start: 04/11/18 14:14 Freq: Status: Active Protocol: Document 04/11/18 14:15 [facility] (Rec: 04/11/18 14:33 [facility] [id number]) Trunk Strength Trunk Manual Muscle Testing Core Stabilization stretch weakness of the transverse abdominal musculature, diastasis above and below the umbilicus PT-OP-Q Treatments Start: 04/11/18 14:14 Freq: Status: Active Protocol: Document 04/25/18 17:48 [facility] (Rec: 04/25/18 17:54 [facility] [email or web address]) Therapeutic Exercises Supine Exercises 5 Supine Exercise Name happy baby and piriformis stretch 4 Supine Exercise Name pelvic floor long holds Reps/Minutes 10 reps x 10 second holds 3 Supine Exercise Name TA with marching and heel slides Comments added in Level 2 2 Supine Exercise Name TA facilitation Side bilateral Reps/Minutes x 5 1 Supine Exercise Name isometric ball squeeze Side bilateral Reps/Minutes 10 reps x 5 second hold time Prone Exercises 1 Prone Exercise Name prone plank exercise Reps/Minutes 5 reps x 10 sec each Sidelying Exercises 1 Sidelying Exercise Name clam shells Reps/Minutes 3 x 10 reps Other Exercises 4 Other Exercise Name prayer stretch 3 Other Exercise Name sidebends in quadraped 2 Other Exercise Name quadraped cat cow Reps/Minutes 10 reps 1 Other Exercise Name quadraped TA facilitation Side bilateral Reps/Minutes hold 5 seconds 10 reps work up to 10 second hold time PT-OP-T Assessment and Plan Start: 04/11/18 14:14 Freq: Status: Active Protocol: Document 04/25/18 17:48 [facility] (Rec: 04/25/18 17:54 [facility] [email or web address]) Physical Therapy Assessment Assessment Summary Assessment added in stretches for the pelvic floor today due to tailbone pain. Discussed the importance of core control for running. Recheck of diastasis shows improvement. Nataliia is tolerating adding in more dynamic exercises. Physical Therapy Plan Frequency and Duration Frequency of Treatment 1x/Week Duration of Treatment 8 weeks Plan of Care Start Date 04/11/18 Plan of Care End Date 06/06/18 Therapeutic Interventions Therapeutic Interventions Home Exercise Program Joint Mobilizations Manual Therapy Neuromuscular Re-education Patient/Caregiver Education Self-Care/Home Management Soft Tissue Mobilization Therapeutic Exercises Modalities Biofeedback Next Visit Focus/Plan Next Note Type Treatment Note Next Visit Plan trial of ball planks next visit, lateral steps with theraband, squats, lunges
--- NOTE | 2018-05-02 12:17 | PT.OTN ---
Current Diagnoses Separation of muscle (nontraumatic), other site (05/02/18) Physical Therapy Treatment Note PT-OP-A Visit Information Start: 04/11/18 14:14 Freq: Status: Active Protocol: Document 05/02/18 12:13 [facility] (Rec: 05/02/18 12:17 [facility] [email or web address]) Out-Patient Physical Therapy Visit Information Visit Information Visit Type Treatment Note Visit Start Time 11:15 Visit Stop Time 12:00 Total Visit Minutes 45 Visit Number 4 Evaluation Information Evaluation Date 04/11/18 PT-OP-B Current Condition Start: 04/11/18 14:14 Freq: Status: Active Protocol: Document 04/11/18 14:15 [facility] (Rec: 04/11/18 14:33 [facility] [id number]) Current Condition History of Current Condition Onset Date 01/11/18 Current Complaints weakness of the core with diastasis, urinary incontinence, LBP History of Current Condition 22 Year old female 3 months post following a vaginal delivery presents with diastasis rectus, pelvic floor weakness, and low back pain. Nataliia reports she feels as if she can not activate her core. She reports urinary leakage 2 xms per day with urgency and R >L LBP Treatment Goals Patient/Caregiver Goals Improve stregth of the core, decrease leakage, and reduce LBP PT-OP-C Subjective Start: 04/11/18 14:14 Freq: Status: Active Protocol: Document 05/02/18 12:13 [facility] (Rec: 05/02/18 12:17 [facility] [email or web address]) OP-PT Subjective Patient Comments Patient Comments reports doing well overall, does have some c/o LBP but no SI pain PT-OP-J Posture/Palpation/Skin Start: 04/11/18 14:14 Freq: Status: Active Protocol: Document 04/11/18 14:15 [facility] (Rec: 04/11/18 14:33 [facility] [id number]) Posture Evaluation Position Standing L-Spine Posture Increased Lordosis Palpation Assessment Location Three Palpation Location Right ASIS tenderness to palpation Palpation Findings Tenderness Two Palpation Location Right side lumbar paraspinals and R SI joint Palpation Findings Muscle Guarding Tenderness One Palpation Location rectus abdominus linea albo Palpation Details diastasis evaluation, at rest there is a 3 finger width seperation just above the umbilicus, with head raise the transverse abdominus contracts a little and this changes to a 2 finger width seperation, distal to tthe umbilicus there is a 2 finger width seperation PT-OP-K Range of Motion Start: 04/11/18 14:35 Freq: Status: Active Protocol: Document 04/11/18 14:35 [facility] (Rec: 04/11/18 14:37 [facility] [id number]) Lumbar Spine Range of Motion Lumbar Spine Active Flexion 60 ROM Limitations Soft Tissue Tightness Comments The patient stands in a increased lordosis, with forward flexion she stays in a arched position, difficulty flexing at the lumbar spine PT-OP-L Special Tests Start: 04/11/18 14:14 Freq: Status: Active Protocol: Document 04/11/18 14:15 [facility] (Rec: 04/11/18 14:33 [facility] [id number]) Special Tests Lumbar Spine Special Tests Patricio Test Results + on the right Other Special Tests Special Tests +ASLR test on the left + standing march test B for SI instability PT-OP-M Strength Start: 04/11/18 14:14 Freq: Status: Active Protocol: Document 04/11/18 14:15 [facility] (Rec: 04/11/18 14:33 [facility] [id number]) Trunk Strength Trunk Manual Muscle Testing Core Stabilization stretch weakness of the transverse abdominal musculature, diastasis above and below the umbilicus PT-OP-Q Treatments Start: 04/11/18 14:14 Freq: Status: Active Protocol: Document 05/02/18 12:13 [facility] (Rec: 05/02/18 12:17 [facility] [email or web address]) Therapeutic Exercises Supine Exercises 3 Supine Exercise Name TA with marching and heel slides Comments added in Level 2 1 Supine Exercise Name isometric ball squeeze Side bilateral Reps/Minutes 10 reps x 5 second hold time Sidelying Exercises 2 Sidelying Exercise Name sidelying hip circles 1 Sidelying Exercise Name clam shells Reps/Minutes 3 x 10 reps Other Exercises 7 Other Exercise Name down dog stretch 6 Other Exercise Name 1/2 kneeling hip flexor stretch 5 Other Exercise Name quadraped OA OL 4 Other Exercise Name prayer stretch 3 Other Exercise Name sidebends in quadraped 2 Other Exercise Name quadraped cat cow Reps/Minutes 10 reps 1 Other Exercise Name quadraped TA facilitation Side bilateral Reps/Minutes hold 5 seconds 10 reps work up to 10 second hold time Manual Therapy Treatment Soft Tissue Mobilization 1 Body Location MFR B lumbar paraspinals PT-OP-T Assessment and Plan Start: 04/11/18 14:14 Freq: Status: Active Protocol: Document 05/02/18 12:13 [facility] (Rec: 05/02/18 12:17 [facility] [email or web address]) Physical Therapy Assessment Assessment Summary Assessment improved core control today, worked on some MFR of the lumbar paraspinals and added in iliopsoas stretching. SHe is tighter right greater than left in the hip flexors Physical Therapy Plan Frequency and Duration Frequency of Treatment 1x/Week Duration of Treatment 8 weeks Plan of Care Start Date 04/11/18 Plan of Care End Date 06/06/18 Therapeutic Interventions Therapeutic Interventions Home Exercise Program Joint Mobilizations Manual Therapy Neuromuscular Re-education Patient/Caregiver Education Self-Care/Home Management Soft Tissue Mobilization Therapeutic Exercises Modalities Biofeedback Next Visit Focus/Plan Next Note Type Treatment Note Next Visit Plan progress to dynamic strengthening next visit if low back tightness has decreased
--- NOTE | 2018-05-16 14:57 | PT.OTN ---
Current Diagnoses Separation of muscle (nontraumatic), other site (05/16/18) Physical Therapy Treatment Note PT-OP-A Visit Information Start: 04/11/18 14:14 Freq: Status: Active Protocol: Document 05/16/18 14:29 [facility] (Rec: 05/16/18 14:57 [facility] [id number]) Out-Patient Physical Therapy Visit Information Visit Information Visit Type Treatment Note Visit Start Time 11:15 Visit Stop Time 12:00 Total Visit Minutes 45 Visit Number 5 Evaluation Information Evaluation Date 04/11/18 PT-OP-B Current Condition Start: 04/11/18 14:14 Freq: Status: Active Protocol: Document 04/11/18 14:15 [facility] (Rec: 04/11/18 14:33 [facility] [id number]) Current Condition History of Current Condition Onset Date 01/11/18 Current Complaints weakness of the core with diastasis, urinary incontinence, LBP History of Current Condition 22 Year old female 3 months post following a vaginal delivery presents with diastasis rectus, pelvic floor weakness, and low back pain. Nataliia reports she feels as if she can not activate her core. She reports urinary leakage 2 xms per day with urgency and R >L LBP Treatment Goals Patient/Caregiver Goals Improve stregth of the core, decrease leakage, and reduce LBP PT-OP-C Subjective Start: 04/11/18 14:14 Freq: Status: Active Protocol: Document 05/16/18 14:29 [facility] (Rec: 05/16/18 14:57 [facility] [id number]) OP-PT Subjective Patient Comments Patient Comments Nataliia reports she is doing well, she did have two nights where she experienced leakage at night. This was also after she started a new work out class PT-OP-J Posture/Palpation/Skin Start: 04/11/18 14:14 Freq: Status: Active Protocol: Document 04/11/18 14:15 [facility] (Rec: 04/11/18 14:33 [facility] [id number]) Posture Evaluation Position Standing L-Spine Posture Increased Lordosis Palpation Assessment Location Three Palpation Location Right ASIS tenderness to palpation Palpation Findings Tenderness Two Palpation Location Right side lumbar paraspinals and R SI joint Palpation Findings Muscle Guarding Tenderness One Palpation Location rectus abdominus linea albo Palpation Details diastasis evaluation, at rest there is a 3 finger width seperation just above the umbilicus, with head raise the transverse abdominus contracts a little and this changes to a 2 finger width seperation, distal to tthe umbilicus there is a 2 finger width seperation PT-OP-K Range of Motion Start: 04/11/18 14:35 Freq: Status: Active Protocol: Document 04/11/18 14:35 [facility] (Rec: 04/11/18 14:37 [facility] [id number]) Lumbar Spine Range of Motion Lumbar Spine Active Flexion 60 ROM Limitations Soft Tissue Tightness Comments The patient stands in a increased lordosis, with forward flexion she stays in a arched position, difficulty flexing at the lumbar spine PT-OP-L Special Tests Start: 04/11/18 14:14 Freq: Status: Active Protocol: Document 04/11/18 14:15 [facility] (Rec: 04/11/18 14:33 [facility] [id number]) Special Tests Lumbar Spine Special Tests Patricio Test Results + on the right Other Special Tests Special Tests +ASLR test on the left + standing march test B for SI instability PT-OP-M Strength Start: 04/11/18 14:14 Freq: Status: Active Protocol: Document 04/11/18 14:15 [facility] (Rec: 04/11/18 14:33 [facility] [id number]) Trunk Strength Trunk Manual Muscle Testing Core Stabilization stretch weakness of the transverse abdominal musculature, diastasis above and below the umbilicus PT-OP-Q Treatments Start: 04/11/18 14:14 Freq: Status: Active Protocol: Document 05/16/18 14:29 [facility] (Rec: 05/16/18 14:57 [facility] [email or web address]) Therapeutic Exercises Supine Exercises 4 Supine Exercise Name pelvic floor long holds Reps/Minutes 10 reps x 10 second holds 3 Supine Exercise Name TA with marching and heel slides Comments added in Level 2 2 Supine Exercise Name TA facilitation Side bilateral Reps/Minutes x 5 1 Supine Exercise Name isometric ball squeeze Side bilateral Reps/Minutes 10 reps x 5 second hold time Sidelying Exercises 2 Sidelying Exercise Name sidelying hip circles 1 Sidelying Exercise Name clam shells Reps/Minutes 3 x 10 reps Manual Therapy Treatment Manual Techniques 2 Type recheck of diastasis Comments good closure of the diastasis, one finger width distal to umbilicus now. 1 Type MET right posterior rotation Body Position Hooklying Reps/Duration x 5 reps Comments followed by manaul resistance to isometric adduction PT-OP-T Assessment and Plan Start: 04/11/18 14:14 Freq: Status: Active Protocol: Document 05/16/18 14:29 [facility] (Rec: 05/16/18 14:57 [facility] [email or web address]) Physical Therapy Assessment Assessment Summary Assessment recheck today of ASLR was normal, good transverse abdominal activation. The diastasis is closing and there is only 1 finger width distal to umbilicus now. Pelvic floor guarding is present on EMG biofeedback. No complaints of pelvic pain but we do want to reduce this guarding for her. Her comes home from deployment in one month. Physical Therapy Plan Frequency and Duration Frequency of Treatment 1x/Week Duration of Treatment 8 weeks Plan of Care Start Date 04/11/18 Plan of Care End Date 06/06/18 Therapeutic Interventions Therapeutic Interventions Home Exercise Program Joint Mobilizations Manual Therapy Neuromuscular Re-education Patient/Caregiver Education Self-Care/Home Management Soft Tissue Mobilization Therapeutic Exercises Modalities Biofeedback Next Visit Focus/Plan Next Note Type Treatment Note Next Visit Plan review stretches for the low back and pelvic floor, recheck pelvic alignment
--- NOTE | 2018-05-23 13:36 | PT.OTN ---
Current Diagnoses Separation of muscle (nontraumatic), other site (05/23/18) Physical Therapy Treatment Note PT-OP-A Visit Information Start: 04/11/18 14:14 Freq: Status: Active Protocol: Document 05/23/18 13:24 [facility] (Rec: 05/23/18 13:35 [facility] [email or web address]) Out-Patient Physical Therapy Visit Information Visit Information Visit Type Progress Note Visit Start Time 11:15 Visit Stop Time 12:00 Total Visit Minutes 45 Visit Number 6 Evaluation Information Evaluation Date 04/11/18 PT-OP-B Current Condition Start: 04/11/18 14:14 Freq: Status: Active Protocol: Document 04/11/18 14:15 [facility] (Rec: 04/11/18 14:33 [facility] [id number]) Current Condition History of Current Condition Onset Date 01/11/18 Current Complaints weakness of the core with diastasis, urinary incontinence, LBP History of Current Condition 22 Year old female 3 months post following a vaginal delivery presents with diastasis rectus, pelvic floor weakness, and low back pain. Nataliia reports she feels as if she can not activate her core. She reports urinary leakage 2 xms per day with urgency and R >L LBP Treatment Goals Patient/Caregiver Goals Improve stregth of the core, decrease leakage, and reduce LBP PT-OP-C Subjective Start: 04/11/18 14:14 Freq: Status: Active Protocol: Document 05/23/18 13:24 [facility] (Rec: 05/23/18 13:35 [facility] [email or web address]) OP-PT Subjective Patient Comments Patient Comments Nataliia reports she is feeling stronger over all and her low back is feeling better . She would like to check pelvic floor strength to make sure she is progressing. Overall her core feels stronger PT-OP-I Pelvic Floor Start: 05/23/18 13:35 Freq: Status: Active Protocol: Document 05/23/18 13:35 [facility] (Rec: 05/23/18 13:36 [facility] [email or web address]) Pelvic Floor Assessment Pelvic Clock Pelvic Clock 6-9 Tenderness Tightness Contraction Ability Manual Muscle Testing Left 4 Manual Muscle Testing Right 4 Manual Muscle Testing Anterior 4 Manual Muscle Testing Posterior 4 Muscle Endurance (Seconds) 10 PT-OP-J Posture/Palpation/Skin Start: 04/11/18 14:14 Freq: Status: Active Protocol: Document 04/11/18 14:15 [facility] (Rec: 04/11/18 14:33 [facility] [id number]) Posture Evaluation Position Standing L-Spine Posture Increased Lordosis Palpation Assessment Location Three Palpation Location Right ASIS tenderness to palpation Palpation Findings Tenderness Two Palpation Location Right side lumbar paraspinals and R SI joint Palpation Findings Muscle Guarding Tenderness One Palpation Location rectus abdominus linea albo Palpation Details diastasis evaluation, at rest there is a 3 finger width seperation just above the umbilicus, with head raise the transverse abdominus contracts a little and this changes to a 2 finger width seperation, distal to tthe umbilicus there is a 2 finger width seperation PT-OP-K Range of Motion Start: 04/11/18 14:35 Freq: Status: Active Protocol: Document 04/11/18 14:35 [facility] (Rec: 04/11/18 14:37 [facility] [id number]) Lumbar Spine Range of Motion Lumbar Spine Active Flexion 60 ROM Limitations Soft Tissue Tightness Comments The patient stands in a increased lordosis, with forward flexion she stays in a arched position, difficulty flexing at the lumbar spine PT-OP-L Special Tests Start: 04/11/18 14:14 Freq: Status: Active Protocol: Document 04/11/18 14:15 [facility] (Rec: 04/11/18 14:33 [facility] [id number]) Special Tests Lumbar Spine Special Tests Patricio Test Results + on the right Other Special Tests Special Tests +ASLR test on the left + standing march test B for SI instability PT-OP-M Strength Start: 04/11/18 14:14 Freq: Status: Active Protocol: Document 04/11/18 14:15 [facility] (Rec: 04/11/18 14:33 [facility] [id number]) Trunk Strength Trunk Manual Muscle Testing Core Stabilization stretch weakness of the transverse abdominal musculature, diastasis above and below the umbilicus PT-OP-Q Treatments Start: 04/11/18 14:14 Freq: Status: Active Protocol: Document 05/23/18 13:24 [facility] (Rec: 05/23/18 13:35 [facility] [email or web address]) Therapeutic Exercises Supine Exercises 4 Supine Exercise Name pelvic floor long holds Reps/Minutes 10 reps x 10 second holds 1 Supine Exercise Name isometric ball squeeze Side bilateral Reps/Minutes 10 reps x 5 second hold time Other Exercises 9 Other Exercise Name rolling like a ball for segmental flexion of the lumbar spine 8 Other Exercise Name long sitting stretch for low back release 2 Other Exercise Name quadraped cat cow Reps/Minutes 10 reps Manual Therapy Treatment Manual Techniques 4 Type manual assessment of pelvic floor strength and tone 3 Type MFR of the left lateral wall of the illiococcygeus PT-OP-T Assessment and Plan Start: 04/11/18 14:14 Freq: Status: Active Protocol: Document 05/23/18 13:24 [facility] (Rec: 05/23/18 13:35 [facility] [email or web address]) Physical Therapy Assessment Goals Four Impairment pelvic floor weakness with urinary incontinence Short Term Goal (STG) GOAL MET Cardiac Rn Goal (LTG) Improve pelvic floor strength to reduce urinary leakage from 2 xms per day to no longer leaking throught the day LTG Duration 8 weeks Three Impairment SI instability with right greater than left iliopsoas tightness, Short Term Goal (STG) GOOD PROGRESS Jail Goal (LTG) correct SI alignment of the left leg longer in supine with manual therapy techniques, stretching of the iliopsoas, and body mechanics training Two Impairment Shortened lumbar paraspinal muscles with increased lordosis in standing, LB Short Term Goal (STG) Nataliia is educated in stretching exercises for the lumbar paraspinals to help reduce tightness, she is given postural education to decrease her lordosis in standing, and she has reduced complaints of LBP Jail Goal (LTG) GOOD PROGRESS One Impairment abdominal wall stretch weakness with diastasis Short Term Goal (STG) Nataliia is educated on activities that would place strain on the abdominal wall, taught bracing techniques for transitional movements, and to avoid sit up type movements STG Duration GOAL MET Jail Goal (LTG) Improve stabilization of the transverse abdominal wall to support the core and reduce the diastasis, she is able to perform a SLR without the opposite SI joint unlocking (- ASLR test) LTG Duration 4 weeks Assessment Summary Assessment Nataliia is making great overall progress with PT. Her diastasis has lessened significantly and her inner core strength is much improved . With pelvic floor examination today she is a 4/5 MMT. There is some residual tightness on the left lateral wall of the illiococcygeus that I did work on releasing today with MFR. She is demonstrating improved stability of her SI joint as well. Nataliia is slowly working on returning to exercise classes. She would benefit from a few more visits in PT to work on more dynamic training and she will then be discharged to a home program. Physical Therapy Plan Frequency and Duration Frequency of Treatment 1x/Week Duration of Treatment 6 weeks Plan of Care Start Date 05/23/18 Plan of Care End Date 07/18/18 Therapeutic Interventions Therapeutic Interventions Home Exercise Program Joint Mobilizations Manual Therapy Neuromuscular Re-education Patient/Caregiver Education Self-Care/Home Management Soft Tissue Mobilization Therapeutic Exercises Modalities Biofeedback Next Visit Focus/Plan Next Note Type Treatment Note Next Visit Plan review stretches for the low back and pelvic floor, recheck pelvic alignment
--- NOTE | 2018-05-23 13:36 | PT.OPPOC ---
Current Diagnoses Separation of muscle (nontraumatic), other site (05/23/18) Provider Visit Care Team Role Provider Type Damari Richardson MD Attending Provider Physician Primary Care Provider Specialty: Family Practice Address: [address] [place] [address], [id number] Email: Plan Of Care PT-OP-T Assessment and Plan Start: 04/11/18 14:14 Freq: Status: Active Protocol: Document 05/23/18 13:24 [facility] (Rec: 05/23/18 13:35 [facility] [email or web address]) Physical Therapy Assessment Goals Four Impairment pelvic floor weakness with urinary incontinence Short Term Goal (STG) GOAL MET Pastry Chef Goal (LTG) Improve pelvic floor strength to reduce urinary leakage from 2 xms per day to no longer leaking throught the day LTG Duration 8 weeks Three Impairment SI instability with right greater than left iliopsoas tightness, Short Term Goal (STG) GOOD PROGRESS Pastry Chef Goal (LTG) correct SI alignment of the left leg longer in supine with manual therapy techniques, stretching of the iliopsoas, and body mechanics training Two Impairment Shortened lumbar paraspinal muscles with increased lordosis in standing, LB Short Term Goal (STG) Nataliia is educated in stretching exercises for the lumbar paraspinals to help reduce tightness, she is given postural education to decrease her lordosis in standing, and she has reduced complaints of LBP Pastry Chef Goal (LTG) GOOD PROGRESS One Impairment abdominal wall stretch weakness with diastasis Short Term Goal (STG) Nataliia is educated on activities that would place strain on the abdominal wall, taught bracing techniques for transitional movements, and to avoid sit up type movements STG Duration GOAL MET [facility] Goal (LTG) Improve stabilization of the transverse abdominal wall to support the core and reduce the diastasis, she is able to perform a SLR without the opposite SI joint unlocking (- ASLR test) LTG Duration 4 weeks Assessment Summary Assessment Nataliia is making great overall progress with PT. Her diastasis has lessened significantly and her inner core strength is much improved. With pelvic floor examination today she is a 4/5 MMT. There is some residual tightness on the left lateral wall of the illiococcygeus that I did work on releasing today with MFR. She is demonstrating improved stability of her SI joint as well. Nataliia is slowly working on returning to exercise classes. She would benefit from a few more visits in PT to work on more dynamic training and she will then be discharged to a home program. Physical Therapy Plan Frequency and Duration Frequency of Treatment 1x/Week Duration of Treatment 6 weeks Plan of Care Start Date 05/23/18 Plan of Care End Date 07/18/18 Therapeutic Interventions Therapeutic Interventions Home Exercise Program Joint Mobilizations Manual Therapy Neuromuscular Re-education Patient/Caregiver Education Self-Care/Home Management Soft Tissue Mobilization Therapeutic Exercises Modalities Biofeedback Next Visit Focus/Plan Next Note Type Treatment Note Next Visit Plan review stretches for the low back and pelvic floor, recheck pelvic alignment Plan of Care Dates Plan of Care Start Date 05/23/18 Plan of Care End Date 07/18/18 Please Sign and Return: I have reviewed this Plan of Care and certify that the skilled therapy services above are required to meet the patient?s needs. Physician Signature Date Printed Name and Credentials Clinical Instructor Signature Printed Name and Credentials
--- NOTE | 2018-06-01 11:49 | PT.OTN ---
Current Diagnoses Separation of muscle (nontraumatic), other site (05/30/18) Physical Therapy Treatment Note PT-OP-A Visit Information Start: 04/11/18 14:14 Freq: Status: Active Protocol: Document 05/30/18 11:15 [facility] (Rec: 06/01/18 11:49 [facility] [email or web address]) Out-Patient Physical Therapy Visit Information Visit Information Visit Type Treatment Note Visit Start Time 11:15 Visit Stop Time 12:00 Total Visit Minutes 45 Visit Number 7 Evaluation Information Evaluation Date 04/11/18 PT-OP-B Current Condition Start: 04/11/18 14:14 Freq: Status: Active Protocol: Document 04/11/18 14:15 [facility] (Rec: 04/11/18 14:33 [facility] [id number]) Current Condition History of Current Condition Onset Date 01/11/18 Current Complaints weakness of the core with diastasis, urinary incontinence, LBP History of Current Condition 22 Year old female 3 months post following a vaginal delivery presents with diastasis rectus, pelvic floor weakness, and low back pain. Nataliia reports she feels as if she can not activate her core. She reports urinary leakage 2 xms per day with urgency and R >L LBP Treatment Goals Patient/Caregiver Goals Improve stregth of the core, decrease leakage, and reduce LBP PT-OP-C Subjective Start: 04/11/18 14:14 Freq: Status: Active Protocol: Document 05/30/18 11:15 [facility] (Rec: 06/01/18 11:49 [facility] [email or web address]) OP-PT Subjective Patient Comments Patient Comments Doing better overall, still feeling low back discomfort but it is improving PT-OP-I Pelvic Floor Start: 05/23/18 13:35 Freq: Status: Active Protocol: Document 05/23/18 13:35 [facility] (Rec: 05/23/18 13:36 [facility] [email or web address]) Pelvic Floor Assessment Pelvic Clock Pelvic Clock 6-9 Tenderness Tightness Contraction Ability Manual Muscle Testing Left 4 Manual Muscle Testing Right 4 Manual Muscle Testing Anterior 4 Manual Muscle Testing Posterior 4 Muscle Endurance (Seconds) 10 PT-OP-J Posture/Palpation/Skin Start: 04/11/18 14:14 Freq: Status: Active Protocol: Document 04/11/18 14:15 [facility] (Rec: 04/11/18 14:33 [facility] [id number]) Posture Evaluation Position Standing L-Spine Posture Increased Lordosis Palpation Assessment Location Three Palpation Location Right ASIS tenderness to palpation Palpation Findings Tenderness Two Palpation Location Right side lumbar paraspinals and R SI joint Palpation Findings Muscle Guarding Tenderness One Palpation Location rectus abdominus linea albo Palpation Details diastasis evaluation, at rest there is a 3 finger width seperation just above the umbilicus, with head raise the transverse abdominus contracts a little and this changes to a 2 finger width seperation, distal to tthe umbilicus there is a 2 finger width seperation PT-OP-K Range of Motion Start: 04/11/18 14:35 Freq: Status: Active Protocol: Document 04/11/18 14:35 [facility] (Rec: 04/11/18 14:37 [facility] [id number]) Lumbar Spine Range of Motion Lumbar Spine Active Flexion 60 ROM Limitations Soft Tissue Tightness Comments The patient stands in a increased lordosis, with forward flexion she stays in a arched position, difficulty flexing at the lumbar spine PT-OP-L Special Tests Start: 04/11/18 14:14 Freq: Status: Active Protocol: Document 04/11/18 14:15 [facility] (Rec: 04/11/18 14:33 [facility] [id number]) Special Tests Lumbar Spine Special Tests Patricio Test Results + on the right Other Special Tests Special Tests +ASLR test on the left + standing march test B for SI instability PT-OP-M Strength Start: 04/11/18 14:14 Freq: Status: Active Protocol: Document 04/11/18 14:15 [facility] (Rec: 04/11/18 14:33 [facility] [id number]) Trunk Strength Trunk Manual Muscle Testing Core Stabilization stretch weakness of the transverse abdominal musculature, diastasis above and below the umbilicus PT-OP-Q Treatments Start: 04/11/18 14:14 Freq: Status: Active Protocol: Document 05/30/18 11:15 [facility] (Rec: 06/01/18 11:49 [facility] [email or web address]) Therapeutic Exercises Supine Exercises 4 Supine Exercise Name pelvic floor long holds Reps/Minutes 10 reps x 10 second holds 1 Supine Exercise Name isometric ball squeeze Side bilateral Reps/Minutes 10 reps x 5 second hold time Other Exercises 8 Other Exercise Name long sitting stretch for low back release 2 Other Exercise Name quadraped cat cow Reps/Minutes 10 reps Manual Therapy Treatment Soft Tissue Mobilization 2 Body Location MFR to the sacral and piriformis region Body Position Prone 1 Body Location MFR B lumbar paraspinals Manual Techniques 5 Type sacral mobilizations into sacral counternutation Comments MET and manual mobilizations PT-OP-T Assessment and Plan Start: 04/11/18 14:14 Freq: Status: Active Protocol: Document 05/30/18 11:15 [facility] (Rec: 06/01/18 11:49 [facility] [email or web address]) Physical Therapy Assessment Assessment Summary Assessment Decreased resting tone on EMG biofeedback today to 2.5 uv much improved. There is still some low back tightness with tendency for the sacrum to be held in a nutated position. Worked on counter nutation and exercsies to improve segmental lumbar flexion Physical Therapy Plan Frequency and Duration Frequency of Treatment 1x/Week Duration of Treatment 6 weeks Plan of Care Start Date 05/23/18 Plan of Care End Date 07/18/18 Next Visit Focus/Plan Next Note Type Treatment Note Next Visit Plan review stretches for the low back and pelvic floor, recheck pelvic alignment Recheck pelvic floor resting tone
--- NOTE | 2018-06-07 14:01 | PT.OTN ---
Current Diagnoses Separation of muscle (nontraumatic), other site (06/06/18) Physical Therapy Treatment Note PT-OP-A Visit Information Start: 04/11/18 14:14 Freq: Status: Active Protocol: Document 06/06/18 11:15 [facility] (Rec: 06/07/18 10:42 [facility] [email or web address]) Out-Patient Physical Therapy Visit Information Visit Information Visit Type Treatment Note Visit Start Time 11:15 Visit Stop Time 12:00 Total Visit Minutes 45 Visit Number 8 Evaluation Information Evaluation Date 04/11/18 PT-OP-B Current Condition Start: 04/11/18 14:14 Freq: Status: Active Protocol: Document 04/11/18 14:15 [facility] (Rec: 04/11/18 14:33 [facility] [id number]) Current Condition History of Current Condition Onset Date 01/11/18 Current Complaints weakness of the core with diastasis, urinary incontinence, LBP History of Current Condition 22 Year old female 3 months post following a vaginal delivery presents with diastasis rectus, pelvic floor weakness, and low back pain. Nataliia reports she feels as if she can not activate her core. She reports urinary leakage 2 xms per day with urgency and R >L LBP Treatment Goals Patient/Caregiver Goals Improve stregth of the core, decrease leakage, and reduce LBP PT-OP-C Subjective Start: 04/11/18 14:14 Freq: Status: Active Protocol: Document 06/06/18 11:15 [facility] (Rec: 06/07/18 10:42 [facility] [email or web address]) OP-PT Subjective Patient Comments Patient Comments Overall Nataliia reports she is doing much better. She feels much more supported in her abdominal wall and pelvic floor. There is still some residual low back tightness and discomfort at times but this is improving Patient Reported Progress Improving PT-OP-I Pelvic Floor Start: 05/23/18 13:35 Freq: Status: Active Protocol: Document 05/23/18 13:35 [facility] (Rec: 05/23/18 13:36 [facility] [email or web address]) Pelvic Floor Assessment Pelvic Clock Pelvic Clock 6-9 Tenderness Tightness Contraction Ability Manual Muscle Testing Left 4 Manual Muscle Testing Right 4 Manual Muscle Testing Anterior 4 Manual Muscle Testing Posterior 4 Muscle Endurance (Seconds) 10 PT-OP-J Posture/Palpation/Skin Start: 04/11/18 14:14 Freq: Status: Active Protocol: Document 04/11/18 14:15 [facility] (Rec: 04/11/18 14:33 [facility] [id number]) Posture Evaluation Position Standing L-Spine Posture Increased Lordosis Palpation Assessment Location Three Palpation Location Right ASIS tenderness to palpation Palpation Findings Tenderness Two Palpation Location Right side lumbar paraspinals and R SI joint Palpation Findings Muscle Guarding Tenderness One Palpation Location rectus abdominus linea albo Palpation Details diastasis evaluation, at rest there is a 3 finger width seperation just above the umbilicus, with head raise the transverse abdominus contracts a little and this changes to a 2 finger width seperation, distal to tthe umbilicus there is a 2 finger width seperation PT-OP-K Range of Motion Start: 04/11/18 14:35 Freq: Status: Active Protocol: Document 04/11/18 14:35 [facility] (Rec: 04/11/18 14:37 [facility] [id number]) Lumbar Spine Range of Motion Lumbar Spine Active Flexion 60 ROM Limitations Soft Tissue Tightness Comments The patient stands in a increased lordosis, with forward flexion she stays in a arched position, difficulty flexing at the lumbar spine PT-OP-L Special Tests Start: 04/11/18 14:14 Freq: Status: Active Protocol: Document 04/11/18 14:15 [facility] (Rec: 04/11/18 14:33 [facility] [id number]) Special Tests Lumbar Spine Special Tests Patricio Test Results + on the right Other Special Tests Special Tests +ASLR test on the left + standing march test B for SI instability PT-OP-M Strength Start: 04/11/18 14:14 Freq: Status: Active Protocol: Document 06/06/18 11:15 [facility] (Rec: 06/07/18 10:42 [facility] [email or web address]) Trunk Strength Trunk Manual Muscle Testing Core Stabilization much improved core stabilization now and negative ALSR test. Good midline support without abdominal bulge PT-OP-Q Treatments Start: 04/11/18 14:14 Freq: Status: Active Protocol: Document 06/06/18 11:15 [facility] (Rec: 06/07/18 10:42 [facility] [email or web address]) Therapeutic Exercises Supine Exercises 4 Supine Exercise Name pelvic floor long holds Reps/Minutes 10 reps x 10 second holds Other Exercises 10 Other Exercise Name TA facilitation with crunch Comments arms in front TA and pelvic floor facilitation first 9 Other Exercise Name rolling like a ball for segmental flexion of the lumbar spine 8 Other Exercise Name long sitting stretch for low back release 7 Other Exercise Name down dog stretch 6 Other Exercise Name 1/2 kneeling hip flexor stretch 5 Other Exercise Name quadraped OA OL 4 Other Exercise Name prayer stretch 3 Other Exercise Name sidebends in quadraped 2 Other Exercise Name quadraped cat cow Reps/Minutes 10 reps 1 Other Exercise Name quadraped TA facilitation Side bilateral Reps/Minutes hold 5 seconds 10 reps work up to 10 second hold time PT-OP-T Assessment and Plan Start: 04/11/18 14:14 Freq: Status: Active Protocol: Document 06/06/18 11:15 [facility] (Rec: 06/07/18 10:42 [facility] [email or web address]) Physical Therapy Assessment Goals Four Impairment pelvic floor weakness with urinary incontinence Group Home Goal (LTG) Improve pelvic floor strength to reduce urinary leakage from 2 xms per day to no longer leaking throught the day LTG Duration GOAL MET Three Mainstreaming Facilitator Goal (LTG) correct SI alignment of the left leg longer in supine with manual therapy techniques, stretching of the iliopsoas, and body mechanics training LTG Duration GOAL MET [facility] Home Goal (LTG) Improve stabilization of the transverse abdominal wall to support the core and reduce the diastasis, she is able to perform a SLR without the opposite SI joint unlocking (- ASLR test) LTG Duration GOAL MET Assessment Summary Assessment Nataliia has made great overall progress with inner core stabilization, stretches to improve low back segmental movement, postural awareness and body mechanics. She reports improved support of her abdominal wall, there is no abdominal bulging present, good strength of the pelvic floor now and resting tone is down to around 2.5. uv. All PT goals have been met. At this time Nataliia will dscharged to a independent home program. Thank you for this referral Physical Therapy Plan Discharge Physical Therapy Discharge Reasons Goals Met
== END 2018-08-03 12:17 | disposition home or self-care (01) ==
LOC: PHYS 11:15
PROVIDERS: PCP Family Medicine; Visit Provider Family Medicine
DX: M62.08 Separation of muscle (nontraumatic), other site (principal)
CPT/HCPCS: 97110; 97140; 97161

== ENCOUNTER → 2019-03-06 07:49 | Outpatient (CLI) | payer SELFPAY ==
[2019-03-08 15:29] LABS: Hepatitis B Surf AB Imm QUANT 82 mIU/mL (> 9)
== END ==
PROVIDERS: PCP Family Medicine; Visit Provider Family Medicine
DX: Z01.84 Encounter for antibody response examination (principal)
CPT/HCPCS: 36415; 86706

== ENCOUNTER → 2019-09-04 15:35 | Outpatient (CLI) | payer SELFPAY ==
[2019-09-06 13:36] LABS: QuantiFERON Mitogen Value 5.17 IU/mL (.); QuantiFERON Nil Value 0.11 IU/mL (.); QuantiFERON TB Gold Plus Negative (Negative); QuantiFERON TB1 Ag Value 0.11 IU/mL (.); QuantiFERON TB2 Ag Value 0.11 IU/mL (.)
== END ==
PROVIDERS: PCP Family Medicine; Referring Provider Family Medicine; Visit Provider Family Medicine
DX: Z01.84 Encounter for antibody response examination (principal)
CPT/HCPCS: 36415; 86480

== ENCOUNTER → 2019-11-13 | Outpatient (CLI) | payer SELFPAY | PROVIDERS: PCP Family Medicine; Referring Provider Internal Medicine; Visit Provider Internal Medicine | DX: Z23 Encounter for immunization (principal) | CPT/HCPCS: 90471; 90686 ==